=== PATIENT | female | born 1985 | race Asian ===

== ENCOUNTER 2016-11-21 06:59 | Day surgery (SDC) | payer OTHER ==
[2016-11-21] VITALS (15 sets, daily range): BP systolic 97–142; BP diastolic 56–99; PULSE 80–100; RESP 18–22; Ht 149.9 cm; Wt 66.0 kg
[~2016-11-21] VITALS: Ht 149.9 cm; Wt 66.0 kg
[2016-11-21] MEDS ORDERED: CEFAZOLIN 1 GM INJ ONE (07:00)
[2016-11-21] MEDS ORDERED: SOD CHLORIDE 0.9% 1,000 ML IV ONE (07:30)
[2016-11-21] MEDS ORDERED: SITA50TA2 PO (08:05)
[2016-11-21] MEDS ORDERED: BENA20TA48 PO (08:06)
[2016-11-21] MEDS ORDERED: MTF1000T PO (08:06)
[2016-11-21] MEDS ORDERED: HYD25 PO (08:07)
[2016-11-21] MEDS ORDERED: ERGO500037 PO (08:08)
[2016-11-21] MEDS ORDERED: BUPIVACAINE 0.25%/EPI (SDV) 30 ML INJ ONE (09:08)
[2016-11-21] MEDS ORDERED: PROPOFOL 60 ML ONE ×2 (09:11→11:08)
[2016-11-21] MEDS ORDERED: FENTAnyl 50 MCG/ML VIAL ONE ×2 (09:12→09:55)
[2016-11-21] MEDS ORDERED: LIDOCAINE 2% (SDV) 5 ML INJ ONE (09:12)
[2016-11-21] MEDS ORDERED: BUPIVACAINE 0.25%/EPI (SDV) 30 ML INJ INJ ONE (09:30)
[2016-11-21] MEDS ORDERED: PHENYLephrine (100 MCG/ML) 5ML SYG ONE (09:37)
--- NOTE | 2016-11-21 10:43 | OPR ---
Date/Time of Note Date/Time of Note DATE: 11/21/16 TIME: 10:38 Operative Report Procedure Date: Nov 21, 2016 Preoperative Diagnosis Mass of right posterior thigh Postoperative Diagnosis Mass of right posterior thigh Operation Performed Excision of right posterior thigh mass 9 cm x 5 cm Surgeon: SANYA DELGADO MD Anesthesia: general Anesthesiologist: MARILIA JORDAN Estimated Blood Loss: minimal Specimens 1. Right posterior thigh mass 2. Excess skin Complications: None Pt Condition Post Procedure: stable Disposition: PACU Indications The patient is an obese 31-year-old female with a history of uterine cancer, diabetes and hypertension who presented to the office with a large mass of the posterior right thigh. This has been present for at least the past year. It had been enlarging and causing increasing pain. The patient was scheduled for excision of the right thigh mass for symptom relief and definitive pathological diagnosis. All risks and benefits of the procedure including, but not limited to: Wound infection, excessive bleeding, postoperative seroma/hematoma formation , wound healing issues, mass recurrence, etc. were all explained to the patient in full detail. She fully understood and wished to proceed with the procedure. Informed consent was obtained. Operative\Procedure Findings Large mass with mucoid features as well as areas of necrosis with hematoma. Procedure Description The patient was brought to the operating room and placed supine on the operating table. Bilateral sequential compression devices were placed on both lower extremities. A dose of broad-spectrum perioperative intravenous antibiotics were given. The mass which was located in the right posterior thigh just below the gluteal cleft was marked and confirmed with the patient in the preoperative holding area. After induction of smooth general anesthesia the patient was positioned in the left lateral decubitus position with the right side up. The area was then prepped and draped in standard surgical fashion. After performance of the surgical timeout incision was made over the area of the mass using the lines of least tension with a 15 blade scalpel. 0.25 % Marcaine with epinephrine was infiltrated before the incision. Incision was carried through the skin and the dermis using Bovie electrocautery. Large mass was identified and seemed to involve the dermis. The mass appeared to be mucoid in areas as well as firm with necrosis and hematoma in other areas. Dissection was done around the mass in the involved dermis circumferentially. The mass was then transected at its base. Marking suture was used to lillie the superior and lateral aspects. It was passed off the field as specimen. Specimen excision measured proximally 9 cm x 5 cm. Hemostasis was then inspected for and noted to be adequate. The wound cavity was irrigated with sterile water and the irrigant returned clear. The excess skin in the area of the mass was then excised and passed off the field. The wound was then closed in layers using interrupted 2-0 Vicryl sutures for the dermal layer. Further local anesthesia was applied on the skin of the incision site. The skin was reapproximated with skin geovanny. Incision was cleaned and sterile dressings were applied. The patient was then awoken from anesthesia and transferred to the recovery room in stable condition. All counts were correct at the end of the case 2. SANYA DELGADO MD Nov 21, 2016 10:43
[2016-11-21] MEDS ORDERED: ONDANSETRON 4 MG INJ IV PRN ×2 (11:00)
[2016-11-21] MEDS ORDERED: EPHEDrine SULFATE 50 MG/5 ML SYG IV PRN (11:00)
[2016-11-21] MEDS ORDERED: morphine 2 MG INJ IV PRN (11:00)
[2016-11-21] MEDS ORDERED: FENTAnyl 50 MCG/ML VIAL IV PRN ×3 (11:00)
[2016-11-21] MEDS ORDERED: hydrALAzine 20 MG INJ IV PRN (11:00)
[2016-11-21] MEDS ORDERED: HYDROCODONE/APAP (5/325) TAB PO PRN ×2 (11:00)
[2016-11-21] MEDS ORDERED: OXYCODONE/ACETAMINOPHEN (5/325) TAB PO PRN ×2 (11:00)
[2016-11-21] MEDS ORDERED: INSULIN ASPART [NOVOLOG] 3 ML PEN SC ONE (11:00)
[2016-11-21] MEDS ORDERED: LABETALOL HCL 20MG INJ IV PRN (11:00)
[2016-11-21] MEDS ORDERED: DIPHENHYDRAMINE 50 MG INJ IV PRN (11:00)
[2016-11-21] MEDS ORDERED: MEPERIDINE 25 MG INJ IV PRN (11:00)
[2016-11-21] MEDS ORDERED: GLUCAGON 1 MG INJ IM PRN (11:30)
[2016-11-21] MEDS ORDERED: GLUCOSE GEL 15 GRAM TUBE BUCCAL PRN (11:30)
[2016-11-21] MEDS ORDERED: GLUCOSE GEL 15 GRAM TUBE PO PRN ×2 (11:30)
[2016-11-21] MEDS ORDERED: DEXTROSE 50% 50 ML SYRINGE IV PRN ×2 (11:30)
== END 2016-11-21 13:30 | disposition home or self-care (01) ==
LOC: SDS 06:59
PROVIDERS: ATTEND Surgery
DX: D23.71 Other benign neoplasm of skin of right lower limb, including hip (principal); I10 Essential (primary) hypertension; E11.9 Type 2 diabetes mellitus without complications; E66.9 Obesity, unspecified; Z68.29 Body mass index [BMI] 29.0-29.9, adult
CPT/HCPCS: 27337; 82962; 88305; 88307; J0690; J1815; J2175; J2405; J3010; Z7512; Z7610; J2370